=== PATIENT | female | born 1980 | race Two or more races ===

== ENCOUNTER 2018-11-27 05:16 | Day surgery (SDC) | payer MEDICAID ==
[~2018-11-27] VITALS: Ht 160 cm; Wt 108.9 kg
[2018-11-27] MEDS ORDERED: LACTATED RINGER'S 1,000 ML IV ONE (05:45)
[2018-11-27 06:06] LABS: Basophils # (auto) 0.1 uL; Basophils % (auto) 0.7 % (0.0-2.0); Eosinophils # (auto) 0.1 uL; Eosinophils % (auto) 1.7 % (0.0-7.0); Hematocrit 42.5 % (36.0-46.0); Hemoglobin 14.3 g/dL (12.2-16.2); Lymphocytes # (auto) 2.3 uL; Lymphocytes % (auto) 29.3 % (10.0-50.0); Mean Corpuscular Hgb Conc. 33.8 g/dL (32.0-36.0); Mean Corpuscular Volume 88.8 fL (80.0-100.0); Monocytes # (auto) 0.5 uL; Monocytes % (auto) 6.7 % (0.0-12.0); Neutrophils # (auto) 4.7 uL; Neutrophils % (auto) 61.6 % (37.0-80.0); Platelet Count (auto) 169 10^3/uL (140-450); Red Blood Cells 4.78 10^6/uL (4.0-5.20); Red Cell Distribution Width 12.6 % (11.8-14.3); White Blood Cell 7.7 10^3/uL (4.4-10.8)
[2018-11-27 06:17] LABS: INR 0.87 (0.9-1.15); Partial Thromboplastin Time 27.8 sec (23.78-33.04); Prothrombin Time 9.4 sec (9.27-12.13)
[2018-11-27 06:23] LABS: Albumin 3.4 g/dL (3.4-5.0); BUN/Creatinine Ratio 16.1; Calcium 8.2 mg/dL (8.5-10.1); Potassium 3.9 mmol/L (3.5-5.1)
[2018-11-27 06:26] LABS: Bilirubin, Total 0.4 mg/dL (0.2-1.0); Total Protein 7.6 g/dL (6.4-8.2)
[2018-11-27] MEDS ORDERED: ceFAZolin 1GM/50ML 50 ML IV ONE (10:05)
[2018-11-27] MEDS ORDERED: MIDAZOLAM HCL 1MG/1ML-2 ML VIAL ONE (10:37)
[2018-11-27] MEDS ORDERED: METOCLOPRAMIDE HCL 5MG/ml INJ 2ml VIAL ONE (10:37)
[2018-11-27] MEDS ORDERED: PROPOFOL 10 MG/ML 20 ML IV ONE (10:39)
[2018-11-27] MEDS ORDERED: LIDOCAINE 1% INJ PF 5ML AMP ONE (10:39)
[2018-11-27] MEDS ORDERED: ROCURONIUM 10MG/ML 10ML VIAL IV ONE (10:40)
[2018-11-27] MEDS ORDERED: fentaNYL CITRATE 100 MCG/2 ML VL ONE (10:47)
[2018-11-27] MEDS ORDERED: ONDANSETRON HCL 4 MG/2 ML VIAL IV ONE (11:00)
[2018-11-27] MEDS ORDERED: NALOXONE HCL 0.4 MG/ML VIAL IV PRN (11:00)
[2018-11-27] MEDS ORDERED: HYDROmorphone HCL 2 MG/ML VL IV PRN ×2 (11:00)
[2018-11-27] MEDS ORDERED: GLYCOPYRROLATE 0.2 MG/ML 1ML VIAL ONE (11:08)
[2018-11-27] MEDS ORDERED: NEOSTIGMINE 1 MG/ML INJ (10mg/10ML VIAL) ONE (11:08)
[2018-11-27] MEDS ORDERED: LACTATED RINGER'S 1,000 ML IV SCH (11:14)
[2018-11-27] MEDS ORDERED: ONDANSETRON HCL 4 MG/2 ML VIAL IV PRN (11:15)
[2018-11-27] MEDS ORDERED: SUCCINYLCHOLINE CHLORIDE 20 MG/ML 10ML VIAL IV ONE (11:26)
[2018-11-27 12:30] VITALS: BP 109/68
== END 2018-11-27 12:55 | disposition home or self-care (01) ==
LOC: ER 05:16 → SUR 08:45
PROVIDERS: ATTEND Specialist
DX: Z30.432 Encounter for removal of intrauterine contraceptive device (principal); N94.9 Unspecified condition associated with female genital organs and menstrual cycle; K21.9 Gastro-esophageal reflux disease without esophagitis; E66.9 Obesity, unspecified; G43.909 Migraine, unspecified, not intractable, without status migrainosus; G47.30 Sleep apnea, unspecified; E66.01 Morbid (severe) obesity due to excess calories; Z68.41 Body mass index [BMI] 40.0-44.9, adult
CPT/HCPCS: 58562; J2765; J3010; 36415; 80053; 84702; 85025; 85610; 85730; 86850; 86900; 86901; J0330; J0690; J2250; J2704